=== PATIENT | female | born 1955 | race Caucasian/White ===

== ENCOUNTER 2016-03-23 16:22 | Inpatient (IN) | payer OTHER ==
[~2016-03-23 16:22] MED LIST: ETOMIDATE 20 MG/10 ML VIAL IV ONE; ROCURONIUM 50 MG/5 ML VIAL IV ONE
[2016-03-23 16:48] VITALS: BMI 23.6
--- NOTE | 2016-03-23 16:54 | EDPRACDOC ---
- General Information Information Source: Patient - History of Present Illness Onset: TODAY HPI: PT STATES THAT SHE HAS BEEN HAVING COUGH, CONGESTION, GENERALIZED WEAKNESS, FATIGUE FOR THE LAST 2 WEEKS, WENT TO PCP YESTERDAY, DX WITH PNEUMONIA, PT STATES SHE WAS GIVEN ANTIBIOTIC AND INHALER, STATES GIVEN LOPRESSOR BECAUSE HER HEART RATE WAS "HIGH", PT STATES TOOK LOPRESSOR 50 MG ONCE TODAY FOR FIRST TIME , STATES FEELS DIZZY WHEN SHE SITS UP OR STANDS UP, CONTINUES TO COUGH, DENIES FEVER. Shortness of Breath: Moderate Relevant History: Reports: None Cough: Reports: Non-productive Rhinorrhea: Reports: Clear Ear Symptoms: Reports: None SOB Worsens with: Reports: Exertion, Position SOB Improves with: Reports: Nothing Recently treated infections:: Denies: Otitis media, Pneumonia, URI Associated Signs and symptoms: Reports: Cough, Nasal Symptoms, Myalgia. Denies : Earache, Fever, Headache, Sore Throat, Nausea, Vomiting, Diarrhea, Rash, Pain with head movement, AMS <Jj Izquierdo - Last Filed: 03/23/16 17:30> <Chad Torrez - Last Filed: 03/23/16 23:30> - General Information Chief Complaint: Flu-Like Symptoms Stated Complaint: LOW BLOOD PRESSURE Time Seen by Provider: 03/23/16 16:41 Home Medications: Home Medications Aspirin (Enteric Coated) [Ecotrin] 81 mg PO DAILY 03/23/16 Duloxetine [Cymbalta] 90 mg PO DAILY 03/23/16 Ipratropium [Atrovent Hfa] 1 puff INH BID 03/23/16 Levofloxacin [Levaquin] 500 mg PO DAILY 03/23/16 Metoprolol Tartrate [Lopressor] 50 mg PO DAILY 03/23/16 Pregabalin [Lyrica] 50 mg PO TID 03/23/16 Allergies/Adverse Reactions: Allergies Allergy/AdvReac Type Severity Reaction Status Date / Time No Known Allergies Allergy Verified 08/06/14 12:14 - Treatment Prior to ED Arrival Reported Medications/Treatment PRODUCT GRADER Treated With Medication PRODUCT GRADER YES Medications PRODUCT GRADER (Medication/ Zofran 4mg per EMS Dose/Time) EMS Treatment ALS IV Yes Comment 20g to RFA <Jj Izquierdo - Last Filed: 03/23/16 17:30> - Treatment Prior to ED Arrival Reported Medications/Treatment PRODUCT GRADER Treated With Medication PRODUCT GRADER YES Medications PRODUCT GRADER (Medication/ Zofran 4mg per EMS Dose/Time) EMS Treatment ALS IV Yes Comment 20g to RFA <Chad Torrez - Last Filed: 03/23/16 23:30> ED Past Medical History - History Reviewed Yes Nurses notes reviewed and agree except as marked - Patient Medical History Neurological History: Reports: Multiple Sclerosis Cardiac History: Reports: Hypertension, Heart Attack Musculoskeletal History: Reports: Arthritis (back) Psychological History: Reports: Depression Systemic History: Reports: Cancer (cervical) Surgical History: Reports: Hysterectomy - Family Medical History Reports: Hypertension, Stroke, Cardiac Disorders. Denies: Diabetes, Cancer - Social Medical History Smoking Status: Former smoker ETOH: None Substance Abuse: None <Jj Izquierdo - Last Filed: 03/23/16 17:30> EDM Review of Systems - Review of Systems Constitutional: Fatigue, Weakness. negative: Chills, Fever Eyes: negative: Blurred Vision, Double Vision Ears: negative: Drainage, Pain Throat: negative: Pain Nose: Congestion. negative: Discharge Respiratory: Cough, Shortness of Breath, Wheezing Cardiovascular: negative: Chest Pain, Palpitations Gastrointestinal: negative: Diarrhea, Nausea, Pain, Vomiting Genitourinary: negative: Dysuria, Frequency Neurological: Dizziness, Weakness. negative: Headache, Numbness Musculoskeletal: No Symptoms Reported Integumentary: No Symptoms Reported <Kevin Izquierdoson - Last Filed: 03/23/16 17:30> - Physical Exam Constitutional: Alert (Awake), No apparent distress Oriented to: Time, Person, Place Last recorded Vital Signs: Last Vital Signs Temp 97.9 F 03/23/16 16:40 Pulse 81 03/23/16 16:46 Resp 16 03/23/16 16:46 BP 80/51 L 03/23/16 16:46 Pulse Ox 97 03/23/16 16:46 Oxygen Pulse Oxygen Saturation 97 O2 Device Room Air Oxygen Flow Rate Fraction of Inspired Oxygen ( FIO2) - HEENT Head: Normal ( normocephalic) Eye Exam: Normal (PERRL, EOMI, Sclera white) Oropharynx: Normal (Pharynx:Moist without exudate,Gums-no swelling) Tympanic Membrane: Normal ENT EAC: Normal TMJ: Normal Nose: No Symptoms Reported (septum midline) Neck: Normal (FROM, trachea at midline) - Respiratory/Cardiovascular Respiratory: Wheezes. negative: Accessory Muscle Use, Retractions Cardiovascular: Normal (RRR without murmur, gallop or rub) - GI Auscultation: Normal (NABS) Palpation: Normal (Soft,No rebound or guarding, non distended) Tenderness: Non tender Carrizales's Sign: Negative - Musculoskeletal Back: Normal (Non-Tender) Extremities: Normal (Normal tone, Pulses 2+ No cyanosis or edema, FROM) - Integumentary Skin: Normal, Warm, Dry Lymphatics: Normal (no adenopathy) - Neurologic Memory Impaired: Normal Motor Function: Normal (Normal tone, Pulses 2+ No cyanosis or edema, FROM) Cranial Nerve: Normal (CN II-X11 intact sensation, strength 5/5) Cerebellar: Normal Mood Description: Normal Perception: Normal <Jj Izquierdo - Last Filed: 03/23/16 17:30> - Physical Exam Last recorded Vital Signs: Last Vital Signs Temp 97.9 F 03/23/16 16:40 Pulse 78 03/23/16 18:36 Resp 32 H 03/23/16 18:36 BP 68/42 L 03/23/16 18:36 Pulse Ox 99 03/23/16 18:36 Oxygen Pulse Oxygen Saturation 99 O2 Device Room Air Oxygen Flow Rate 2 Fraction of Inspired Oxygen ( FIO2) <Chad Torrez - Last Filed: 03/23/16 23:30> ED Procedures - Central Line Informed of risks, benefits and alternatives described.: Yes Central Line Informed Consent Signed: Written Indication: Hypotension, Volume Resuscitation, Medication Administration Line Procedure: Chlorahexadine, Sterile drapes applied, Sterile dressing applied Equipment used during procedure: Hat and Mask, Sterile Gown, Sterile Gloves Line Lumen: triple (ULTRASOUND GUIDED) Central Line Postion: internal jugular (L) Anesthesia: Lidocaine Line Position approached and secured by standard fashion: sutured, good blood return, position confirmed w/ CXR Complications: none Post Central Line placement CXR: Ordered Post Line Placement Radiograph Findings: Proper placement - Intubation Informed of risks, benefits and alternatives described.: No Informed Consent Signed: Unable Indication: Respiratory Insufficiency, Altered Mental Status, Airway Protection Intubation Date: 03/23/16 Time of Intubation: 23:29 Pre-oxygenation completed: Yes Number of Attempts: 1 Storcz Used: Yes Intubation Method: Oral Endotracheal Tube Size (cm): 7.5 Position at Lip: 23 ETCO2 Detector Positive: Yes Breath Sounds after Intubation: equal Intubation Complications: no complications Post Intubation Procedure CXR ordered?: Yes Intubation Procedure Note: etomidate 20 mg and rocuronium 100 mg iv. <Chad Torrez - Last Filed: 03/23/16 23:30> ED SOB [facility] - EKG EKG #1 EKG Time: 16:42 -: Yes EKG interpreted by me Rate: bpm: 83 [place]: LAD Rhythm: NSR Block: None Hypertrophy: None ST: Nonsp Comparison: 02/13/12 (NO CHANGE) - Diagnostic Imaging CXR Image interpreted by: Radiologist Diagnostic Imaging Comments: PORTABLE CHEST 1 VIEW COMPARISON: 02/13/2012 FINDINGS: Borderline cardiomegaly. Mild hilar prominence bilaterally. Adenopathy cannot be excluded. No pulmonary edema. Hazy right base medially atelectasis or infiltrate. No pulmonary edema. IMPRESSION: Mild hilar prominence bilaterally. Adenopathy cannot be excluded. Hazy right base medially atelectasis or early infiltrate. No pulmonary edema. <Jj Izquierdo - Last Filed: 03/23/16 17:30> - Re-evaluation Re-evaluation 1 Re-evaluation Time: 19:08 Re-evaluation: PT OBTUNDED AFTER CENTRAL LINE. BLOOD SUGAR 44. GIVING DEXTROSE. Re-evaluation 2 Re-evaluation Time: 20:55 Re-evaluation: POOR PERIPHERAL CIRCULATION. BP 100 SYSTOLIC. BREATHING WITHOUT ASSISTANCE AT THIS TIME ON NC. Re-evaluation 3 Re-evaluation Time: 22:17 Re-evaluation: BREATHING THROUGH PURSED LIPS. UNRESPONSIVE. - Results Result Diagrams: 03/23/16 17:30 03/23/16 19:20 Results: WBC 13.1 xk/uL (3.8-10.8) H 03/23/16 17:30 RBC 4.09 xM/uL (4.20-5.40) L 03/23/16 17:30 Hgb 12.6 g/dL (12.0-16.0) 03/23/16 17:30 Hct 39.8 % (36-47) 03/23/16 17:30 MCV 97 fL (81-99) 03/23/16 17:30 MCH 30.9 pg (27-32) 03/23/16 17:30 MCHC 31.8 g/dl (33-36) L 03/23/16 17:30 RDW 15.7 % (11.5-14.5) H 03/23/16 17:30 Plt Count 248 xk/uL (130-400) 03/23/16 17:30 MPV 9.6 fL (7.4-10.4) 03/23/16 17:30 Neut % (Auto) 67.3 % (45-76) 03/23/16 17:30 Lymph % (Auto) 18.7 % (17-44) 03/23/16 17:30 [place] % (Auto) 12.5 % (3-10) H 03/23/16 17:30 Eos % (Auto) 0.2 % (0-5) 03/23/16 17:30 Baso % (Auto) 1.3 % (0-2) 03/23/16 17:30 Absolute Neuts (auto) 8.78 xk/uL (1.7-8.2) H 03/23/16 17:30 Absolute Lymphs (auto) 2.36 xk/uL (0.65-4.75) 03/23/16 17:30 PT 16.7 SEC (9.2-11.2) H 03/23/16 17:30 INR 1.6 03/23/16 17:30 APTT 25.9 SEC (22-35) 03/23/16 17:30 Puncture Site Left radial 03/23/16 17:45 pH 7.330 pH UNITS (7.35-7.45) L 03/23/16 17:45 pCO2 < 19.0 mmHg (35-45) L* 03/23/16 17:45 pO2 98.0 mmHg (80-100) 03/23/16 17:45 FiO2 % 21% 03/23/16 17:45 Specimen Drawn By Si 03/23/16 17:45 Sodium 137 mEq/L (137-146) 03/23/16 17:30 Potassium 6.3 mEq/L (3.5-5.1) H 03/23/16 17:30 Chloride 105 mEq/L (98-107) 03/23/16 17:30 Carbon Dioxide 12 mMOL/L (22-33) L 03/23/16 17:30 Anion Gap 26 mEq/L (8-16) H 03/23/16 17:30 BUN 29 MG/DL (7-17) H 03/23/16 17:30 Creatinine 1.60 MG/DL (0.52-1.04) H 03/23/16 17:30 Estimated GFR (MDRD) 33 mL/min (>=60) L 03/23/16 17:30 Glucose 81 MG/DL (70-99) 03/23/16 17:30 Calculated Osmolality 269 MOs/Kg (270-290) L 03/23/16 17:30 Lactic Acid 6.0 mEq/L (0.7-2.1) H* 03/23/16 17:10 Calcium 8.3 MG/DL (8.4-10.2) L 03/23/16 17:30 Corrected Calcium 8.6 MG/DL (8.4-10.2) 03/23/16 17:30 Total Bilirubin 2.3 MG/DL (0.2-1.3) H 03/23/16 17:30 AST 1147 IU/L (14-36) H 03/23/16 17:30 ALT 715 IU/L (9-52) H 03/23/16 17:30 Alkaline Phosphatase 103 IU/L (55-165) 03/23/16 17:30 Troponin I 0.08 ng/mL (<.04) 03/23/16 17:30 Total Protein 6.5 G/DL (6.3-8.2) 03/23/16 17:30 Albumin 3.7 G/DL (3.5-5.0) 03/23/16 17:30 Lipase 191 U/L (23-300) 03/23/16 17:30 Lab Results 03/23/16 03/23/16 03/23/16 17:45 17:30 17:30 WBC 13.1 H RBC 4.09 L Hgb 12.6 Hct 39.8 MCV 97 MCH 30.9 MCHC 31.8 L RDW 15.7 H Plt Count 248 MPV 9.6 Neut % (Auto) 67.3 Lymph % (Auto) 18.7 [place] % (Auto) 12.5 H Eos % (Auto) 0.2 Baso % (Auto) 1.3 Absolute Neuts (auto) 8.78 H Absolute Lymphs (auto) 2.36 PT 16.7 H INR 1.6 APTT 25.9 Puncture Site Left radial pH 7.330 L pCO2 < 19.0 L* pO2 98.0 FiO2 % 21% Specimen Drawn By Si Sodium Potassium Chloride Carbon Dioxide Anion Gap BUN Creatinine Estimated GFR (MDRD) Glucose Calculated Osmolality Lactic Acid Calcium Corrected Calcium Total Bilirubin AST ALT Alkaline Phosphatase Troponin I Total Protein Albumin Lipase 03/23/16 03/23/16 17:30 17:10 WBC RBC Hgb Hct MCV MCH MCHC RDW Plt Count MPV Neut % (Auto) Lymph % (Auto) [place] % (Auto) Eos % (Auto) Baso % (Auto) Absolute Neuts (auto) Absolute Lymphs (auto) PT INR APTT Puncture Site pH pCO2 pO2 FiO2 % Specimen Drawn By Sodium 137 Potassium 6.3 H Chloride 105 Carbon Dioxide 12 L Anion Gap 26 H BUN 29 H Creatinine 1.60 H Estimated GFR (MDRD) 33 L Glucose 81 Calculated Osmolality 269 L Lactic Acid 6.0 H* Calcium 8.3 L Corrected Calcium 8.6 Total Bilirubin 2.3 H AST 1147 H ALT 715 H Alkaline Phosphatase 103 Troponin I 0.08 Total Protein 6.5 Albumin 3.7 Lipase 191 - EKG EKG #2 EKG Time: 21:00 -: Yes EKG interpreted by me Rate: bpm: 86 [place]: Normal Rhythm: NSR Hypertrophy: LAE, RVH Comments: ABNORMAL EKG <Chad Torrez - Last Filed: 03/23/16 23:30> ED Critical Care Note - Critical Care Note Total Time (mins): 75 Comments: Due to the presence of and / or the risk of deterioration, my attendance to this patient required critical care time, including assessment/reassessment, documentation, ordering and interpreting ancillary studies, discussion with ED staff and consultants,patient and family, and excludes time spent on separately billable procedures. <Chad Torrez - Last Filed: 03/23/16 23:30> <Jj Izquierdo - Last Filed: 03/23/16 17:30> - Departure Yes I personally saw and evaluated the patient. Disposition: Admit IP To This Hospital Decision to Admit Time: 19:31 Decision to admit date: 03/23/16 Decision to admit: from ED - Physician Consulted Hospitalist Time Called: 19:31 Provider Called: Jareth Falcon Time [employer] Returned Call: 19:31 Cardiology Time Called: 21:20 Provider Called: Octaviano Singh Time [employer] Returned Call: 21:20 Time [employer] in ED: 21:20 Consult Reason: CASE DISCUSSED. FEELS LIKELY SEPSIS SYNDROME. SOME CADIAC DEPRESSION. RECOMMENDS ADD DOBUTAMINE. Surgery Time Called: 21:36 Provider Called: Mark Moore Time [employer] Returned Call: 21:36 Consult Reason: ULTRASOUND FINDINGS DISCUSSED. REC. PERC DRAIN. <Chad Trorez - Last Filed: 03/23/16 23:30> - Departure Condition: Critical Final Diagnosis: Lactic acidosis, CENTRAL LINE BY LUIS EDUARDO, Multisystem organ failure, Shock liver , Acute acalculous cholecystitis, Septic shock, Renal infarction, Pyelonephritis , intubation by luis eduardo Instructions: Urinary Tract Infection in Women (ED), Dysuria Referrals: Alexander Begum MD [Primary Care Provider] - One Week
[2016-03-23] MEDS ORDERED: NS 1,000 ML IV ONE ×5 (16:55→23:17)
[2016-03-23] MEDS ORDERED: Albuterol/Ipratropium Neb 3 ML NEB NEB ONE (16:55)
--- NOTE | 2016-03-23 17:13 | DIRPT ---
CLINICAL DATA: Cough, congestion, generalized weakness for 2 weeks EXAM: PORTABLE CHEST 1 VIEW COMPARISON: 02/13/2012 FINDINGS: Borderline cardiomegaly. Mild hilar prominence bilaterally. Adenopathy cannot be excluded. No pulmonary edema. Hazy right base medially atelectasis or infiltrate. No pulmonary edema. IMPRESSION: Mild hilar prominence bilaterally. Adenopathy cannot be excluded. Hazy right base medially atelectasis or early infiltrate. No pulmonary edema. Electronically Signed By: Ankur Richardson M.D. On: 03/23/2016 17:11
[2016-03-23 17:48] LABS: AUTOMATED BASOPHIL 1.3 % (0-2); AUTOMATED EOSINOPHIL 0.2 % (0-5); AUTOMATED LYMPH 18.7 % (17-44); AUTOMATED MONOCYTE 12.5 % (3-10); AUTOMATED NEUTROPHIL 67.3 % (45-76); MPV 9.6 fL (7.4-10.4)
[2016-03-23 17:51] LABS: ABG Draw Site Left Radial; ABG Draw Tech SI; ALLEN'S TEST PASS; PCO2 < 19.0 mmHg (35-45)
[2016-03-23] MEDS ORDERED: LORAZEPAM 2 MG/ML VIAL IV ONE ×3 (17:59→18:30)
[2016-03-23] MEDS ORDERED: Pharmacy Review for Metformin - IV Contrast Given SCH ×2 (18:00→20:00)
[2016-03-23 18:06] LABS: PARTIAL THROMB. TIME 25.9 SEC (22-35); PT-INR 1.6
[2016-03-23 18:13] LABS: CALC CORRECTED 8.6 MG/DL (8.4-10.2); CALCIUM 8.3 MG/DL (8.4-10.2); CREATININE 1.6 MG/DL (0.52-1.04); TOTAL PROTEIN 6.5 G/DL (6.3-8.2)
[2016-03-23] MEDS ORDERED: HYDROCORTISONE 100 MG/2 ML VIAL IV ONE (18:17)
[2016-03-23] MEDS ORDERED: Norepinephrine in D5W infusion 8,000 MCG/250 ML BAG IV SCH (19:01)
[2016-03-23] MEDS ORDERED: SODIUM BICARBONATE 50 MEQ/50 ML (8.4%) PFS IV ONE ×2 (19:02→19:03)
[2016-03-23] MEDS ORDERED: DEXTROSE 25 GM/50 ML PFS IV ONE ×4 (19:07→19:47)
[2016-03-23] MEDS ORDERED: D5W 0 ML IV ONE (19:08)
[2016-03-23] MEDS: SODIUM BICARBONATE 150 MEQ in D5W 1,000 ML IV SCH (19:34)
[2016-03-23 19:37] VITALS: TEMP 97.4
[2016-03-23] MEDS ORDERED: PIPERACILLIN AND TAZOBACTAM 4.5 GM in D5W 100 ML IV ONE (19:43)
--- NOTE | 2016-03-23 19:47 | DIRPT ---
CLINICAL DATA: Left IJ central line placement EXAM: PORTABLE CHEST 1 VIEW COMPARISON: Chest radiograph from earlier today. FINDINGS: Left internal jugular central venous catheter terminates in the right upper mediastinum, probably within the left brachiocephalic vein near the junction with the SVC. Stable cardiomediastinal silhouette with mild cardiomegaly. Suggestion of mild bilateral hilar prominence, unchanged. No pneumothorax. Probable stable bilateral small pleural effusions. Low lung volumes. No overt pulmonary edema. Mild bibasilar lung opacities, increased on the left. IMPRESSION: 1. No pneumothorax. Left IJ central venous catheter terminates in the right upper mediastinum, probably within the left brachiocephalic vein near the junction with the SVC. 2. Stable mild cardiomegaly without overt pulmonary edema. 3. Low lung volumes with mild bibasilar opacities, increased on the left, favor atelectasis. 4. Stable suggestion of mild bilateral hilar prominence, cannot exclude hilar adenopathy. 5. Stable probable small bilateral pleural effusions. Electronically Signed By: Jj García M.D. On: 03/23/2016 19:44
[2016-03-23 19:51] LABS: ABG Draw Site Left Radial; ALLEN'S TEST PASS; BEb -15.1 (+/- 2); TCO2 10.6 MMOL/L (23-27)
[2016-03-23] MEDS ORDERED: FENTANYL 100 MCG/2 ML VIAL IV ONE (19:55)
[2016-03-23 20:03] LABS: LEUKOCYTES/URINE 2+ (NEGATIVE); NITRITE/URINE NEG (NEGATIVE); RBC/URINE 20-30 (0-5); URINE OCCULT BLOOD 2+ (NEG/TRACE); WBC/URINE 20-30 (0-5)
[2016-03-23 20:11] LABS: BLOOD UREA NITROGEN 28 MG/DL (7-17); CALC CORRECTED 8.1 MG/DL (8.4-10.2); CALCIUM 6.4 MG/DL (8.4-10.2); CALCULATED OSMOLALITY 274 MOs/Kg (270-290); CHLORIDE 106 mEq/L (98-107); GLUCOSE 214 MG/DL (70-99); SODIUM LEVEL 136 mEq/L (137-146); TOTAL PROTEIN 4.3 G/DL (6.3-8.2)
--- NOTE | 2016-03-23 20:38 | DIRPT ---
CLINICAL DATA: Altered mental status. EXAM: CT HEAD WITHOUT CONTRAST TECHNIQUE: Contiguous axial images were obtained from the base of the skull through the vertex without intravenous contrast. COMPARISON: CT scan of February 13, 2012. FINDINGS: Bony calvarium appears intact. No mass effect or midline shift is noted. Ventricular size is within normal limits. There is no evidence of mass lesion, hemorrhage or acute infarction. There is noted gas in the soft tissues anterior to the right maxillary sinus of unknown etiology. IMPRESSION: No acute intracranial abnormality seen. Gas is seen in soft tissues anterior to right maxillary sinus suggesting possible traumatic injury or infection. Clinical correlation is recommended. These results were called by telephone at the time of interpretation on 03/23/2016 at 8:[address] HÉCTOR HOFF DO, who verbally acknowledged these results. Electronically Signed By: Michelet Dawson Jr, M.D. On: 03/23/2016 20:36
--- NOTE | 2016-03-23 20:54 | DIRPT ---
CLINICAL DATA: Altered mental status, hypotension, shortness of breath and elevated liver function tests. Initial encounter. EXAM: CT ANGIOGRAPHY CHEST CT ABDOMEN AND PELVIS WITH CONTRAST TECHNIQUE: Multidetector CT imaging of the chest was performed using the standard protocol during bolus administration of intravenous contrast. Multiplanar CT image reconstructions and MIPs were obtained to evaluate the vascular anatomy. Multidetector CT imaging of the abdomen and pelvis was performed using the standard protocol during bolus administration of intravenous contrast. CONTRAST: 90 cc Isovue 370. COMPARISON: None. FINDINGS: CTA CHEST FINDINGS No pulmonary embolus is identified. There is cardiomegaly. Moderate right and small left pleural effusions are seen. No pericardial effusion. Calcific coronary atherosclerosis is noted. There is abnormal soft tissue attenuation in the supraclavicular space bilaterally which appears fairly symmetric. The lungs demonstrate extensive ground-glass attenuation and interlobular septal thickening best seen in the upper lobes bilaterally. There is some compressive atelectasis. No focal bony abnormality is identified. CT ABDOMEN and PELVIS FINDINGS Multiple areas of low attenuation are seen in the kidneys bilaterally. No hydronephrosis is seen. A punctate nonobstructing stone is present in the upper pole of the right kidney. Two punctate nonobstructing stones are seen in the left kidney. The liver is diffusely low attenuating. Contrast refluxes into the inferior vena cava and hepatic veins consistent with right heart failure. The gallbladder is distended with a sludge ball present. The spleen, pancreas and adrenal glands appear normal. There is a small volume of abdominal and pelvic ascites. Moyer catheter is in place in a decompressed urinary bladder. No lymphadenopathy is seen. The patient is status post hysterectomy. Sigmoid diverticulosis without diverticulitis is identified. The stomach, small and large bowel and appendix appear normal. No focal bony abnormality is seen. Review of the MIP images confirms the above findings. IMPRESSION: Negative for pulmonary embolus. Findings consistent with congestive heart failure with marked cardiomegaly, pleural effusions and changes of pulmonary edema identified. Reflux of contrast into the IVC and hepatic veins is consistent with right heart insufficiency. Markedly abnormal appearance of the kidneys as described above could be due to infiltrative process such as lymphoma, severe pyelonephritis or possibly bilateral renal infarcts. Diffuse fatty infiltration of the liver. Distended gallbladder with a large sludge ball present. If there is concern for cholecystitis, right upper quadrant ultrasound could be used for further evaluation. Calcific coronary atherosclerosis. Small volume of abdominal and pelvic ascites. Nodular appearance and infiltration of supraclavicular fat bilaterally is nonspecific. This may be due to edema or less likely lymphadenopathy. Recommend correlation with clinical examination. Diverticulosis without diverticulitis. These results were called by telephone at the time of interpretation on 03/23/2016 at 8:[address] HÉCTOR HOFF DO, who verbally acknowledged these results. Electronically Signed By: Frank Justice M.D. On: 03/23/2016 20:51
--- NOTE | 2016-03-23 21:37 | PCM.CARDCO ---
Consultation Date: 03/23/16 Requesting Physician: Jareth Falcon (shock) Consulting Doctor: Octaviano Singh Travel Outside of [place] in the Last 3 Months?: No Consultation Note: History of Present Illness: The pt is a 61 yo WF who is followed primarily by Dr. Begum, and for Cardiology in our group by Dr. Rosa, with hx of coronary stenting after what family understands was a very limited OR about 7 years ago. She was well until a month or two ago when she developed sx of URI incl rhinitis and cough (hx per ). She initially did better, than had recurrent worsening cough, was seen this month by Dr. Begum and dx with pneumonia, started on Levoquin. OVer the last week, she has become steadily worse, with worsening SOB, progressing to severe generalized weakness today prompting her eval in ER. She presents obtunded, hypotensive, in clinical shock. Past Medical History: CAD with prior coronary stent. NO DM or HBP. Cervical cancer. Multiple sclerosis dx about 1-2 yrs ago. Allergies No Known Allergies Allergy (Verified 08/06/14 12:14) Home Medications Aspirin (Enteric Coated) [Ecotrin] 81 mg PO DAILY 03/23/16 Duloxetine [Cymbalta] 90 mg PO DAILY 03/23/16 Ipratropium [Atrovent Hfa] 1 puff INH BID 03/23/16 Levofloxacin [Levaquin] 500 mg PO DAILY 03/23/16 Metoprolol Tartrate [Lopressor] 50 mg PO DAILY 03/23/16 Pregabalin [Lyrica] 50 mg PO TID 03/23/16 Family History: + for CAD Social History: Traveled outside the [place] in the last 3 months? No Former smoker , lives with Review of Systems: No obtainable b/o pt obtundation Physical Examination: Temperature: 97.4 F (03/23/16 19:33)HR: 86 (03/23/16 21:05)RR: 17 (03/23/16 21: 05)BP: 115/68 (03/23/16 21:05) SAT:99 (03/23/16 18:36) Had been 80/52 on presentation. Physical Exam GEN: WDWN, age apporpriate, obtunded, no response to veral stim VS: as above on Levophed HEENT: no gross JVD. Carotids 1+ bilat CHEST: clear anteriorly COR: RR, normal s1, s2, no s3. No murmur ABD: no distention EXTREM: cool, clammy, peripheral pulses all diminished SKIN: cool, clammy, ashen NEURO: obtunded, LAB/DI: [] Laboratory Tests 03/23/16 03/23/16 03/23/16 17:10 17:30 17:30 WBC 13.1 H Hgb 12.6 Hct 39.8 Plt Count 248 PT INR pH pCO2 pO2 HCO3 Sodium 137 Potassium 6.3 H Chloride Carbon Dioxide 12 L Anion Gap 26 H BUN 29 H Creatinine 1.60 H Estimated GFR (MDRD) 33 L Glucose Lactic Acid 6.0 H* Corrected Calcium Total Bilirubin AST ALT Alkaline Phosphatase Troponin I 0.08 Albumin 03/23/16 03/23/16 03/23/16 17:30 19:20 19:25 WBC Hgb Hct Plt Count PT 16.7 H INR 1.6 pH 7.260 L pCO2 22.0 L pO2 101.0 H HCO3 9.9 L Sodium 136 L Potassium 5.5 H Chloride 106 Carbon Dioxide 14 L Anion Gap BUN 28 H Creatinine 1.50 H Estimated GFR (MDRD) 35 L Glucose 214 H Lactic Acid Corrected Calcium 8.1 L Total Bilirubin 1.7 H AST 1070 H ALT 613 H Alkaline Phosphatase 66 Troponin I Albumin 2.3 L / EKG: NSR, diffuse low voltage. Poor anteroseptal R progression. Mild inferior ST depression CT/CxR: ground glass pulm infiltration abd US: thickened GB wall, no stones bedside echo (with US machine in ER): diffuse hypokinesis, EF 40s. No pericardial effusion. IMPRESSION: (1) sepsis syndrome with clinical shock, lactic acidosis. (2) myocardial depression secondary to #1, but no acute OR - Recommendations PLAN: add dobutamine to Levophed for inotropic support. formal echocardiogram in AM; pt's counseled that prognosis is guarded. Transfer to [facility] is suggested, but thwarted by bed inavailability.
--- NOTE | 2016-03-23 21:58 | PCM.SURGCO ---
Consultation Date: 03/23/16 Requesting Physician: Chad Hoff Occupational Analyst: Mark Moore Consult Reason: Sepsis - History of Present Illness This is a 61 year old female that is somnolent. All history obtained from the patient's and patient's mother. The patient had been 'fighting a cold' and went to her primary care physician's office on 03/21/16. She was diagnosed with pneumonia. She was given an antibiotic and something to slow her heart down. She developed nausea, vomiting and diarrhea yesterday evening. She was unable to sleep last night and by noon today, was very weak and could not get up and move around. Chief Complaint: weakness - Past Medical and Surgical History Cardiac History: Reports: Hypertension, Heart Attack Respiratory History: Reports: Pneumonia (diagnosed with pneumonia at her primary care physician's office.) Systemic History: Reports: Cancer (cervical.) Musculoskeletal History: Reports: Arthritis (back) Psychological History: Reports: Depression Neurological History: Reports: Multiple Sclerosis Past Surgical History: Reports: Hysterectomy Allergies No Known Allergies Allergy (Verified 08/06/14 12:14) Home Medications Aspirin (Enteric Coated) [Ecotrin] 81 mg PO DAILY 03/23/16 Duloxetine [Cymbalta] 90 mg PO DAILY 03/23/16 Ipratropium [Atrovent Hfa] 1 puff INH BID 03/23/16 Levofloxacin [Levaquin] 500 mg PO DAILY 03/23/16 Metoprolol Tartrate [Lopressor] 50 mg PO DAILY 03/23/16 Pregabalin [Lyrica] 50 mg PO TID 03/23/16 - Social History Travel Outside of [place] in the Last 3 Months?: No Lives: With Family Smoking Status: Former smoker Social History: Denies: Amphetamine Use, Alcohol Use, Barbiturate Use, Benzodiazipine Use, Cocaine Use, Heroin Use, Marijuana Use, Methadone Use, MDMA (Ecstasy) Use, Substance Use Disorder - Family History Reports: Hypertension, Stroke, Cardiac Disorders. Denies: Diabetes, Cancer - Review of Systems Yes All systems reviewed and were negative except as marked (twelve systems reviewed with the patient's .) - Physical Exam Vital Signs: Initial Vitals Pulse Rate 82 03/23/16 16:37 Respiratory Rate 19 03/23/16 16:37 Constitutional: Decreased Consciousness, Somnolent. negative: Distress Oriented to: Unable to Test - HEENT Head: Normal Eye: Pale Conjunctiva Respiratory: Diminished (bilateral bases.) Cardiovascular: Other (markedly diminished.) - GI Auscultation: Decreased Tenderness: negative: Non tender (Unable to determine as patient somnolent.) Rectal Exam: Deferred - Musculoskeletal Extremities: negative: Edema - Integumentary Skin: Diaphoretic, Pale - Neurologic Memory Impaired: Unable to Test Motor Function: Unable to Test Cranial Nerve: Unable to Test Cerebellar: Unable to Test - Lab Results 03/23/16 17:30 03/23/16 19:20 - Diagnostic Findings Final Report CLINICAL DATA: Altered mental status, hypotension, shortness of breath and elevated liver function tests. Initial encounter. EXAM: CT ANGIOGRAPHY CHEST CT ABDOMEN AND PELVIS WITH CONTRAST TECHNIQUE: Multidetector CT imaging of the chest was performed using the standard protocol during bolus administration of intravenous contrast. Multiplanar CT image reconstructions and MIPs were obtained to evaluate the vascular anatomy. Multidetector CT imaging of the abdomen and pelvis was performed using the standard protocol during bolus administration of intravenous contrast. CONTRAST: 90 cc Isovue 370. COMPARISON: None. FINDINGS: CTA CHEST FINDINGS No pulmonary embolus is identified. There is cardiomegaly. Moderate right and small left pleural effusions are seen. No pericardial effusion. Calcific coronary atherosclerosis is noted. There is abnormal soft tissue attenuation in the supraclavicular space bilaterally which appears fairly symmetric. The lungs demonstrate extensive ground-glass attenuation and interlobular septal thickening best seen in the upper lobes bilaterally. There is some compressive atelectasis. No focal bony abnormality is identified. CT ABDOMEN and PELVIS FINDINGS Multiple areas of low attenuation are seen in the kidneys bilaterally. No hydronephrosis is seen. A punctate nonobstructing stone is present in the upper pole of the right kidney. Two punctate nonobstructing stones are seen in the left kidney. The liver is diffusely low attenuating. Contrast refluxes into the inferior vena cava and hepatic veins consistent with right heart failure. The gallbladder is distended with a sludge ball present. The spleen, pancreas and adrenal glands appear normal. There is a small volume of abdominal and pelvic ascites. Moyer catheter is in place in a decompressed urinary bladder. No lymphadenopathy is seen. The patient is status post hysterectomy. Sigmoid diverticulosis without diverticulitis is identified. The stomach, small and large bowel and appendix appear normal. No focal bony abnormality is seen. Review of the MIP images confirms the above findings. IMPRESSION: Negative for pulmonary embolus. Findings consistent with congestive heart failure with marked cardiomegaly, pleural effusions and changes of pulmonary edema identified. Reflux of contrast into the IVC and hepatic veins is consistent with right heart insufficiency. Markedly abnormal appearance of the kidneys as described above could be due to infiltrative process such as lymphoma, severe pyelonephritis or possibly bilateral renal infarcts. Diffuse fatty infiltration of the liver. Distended gallbladder with a large sludge ball present. If there is concern for cholecystitis, right upper quadrant ultrasound could be used for further evaluation. Calcific coronary atherosclerosis. Small volume of abdominal and pelvic ascites. Nodular appearance and infiltration of supraclavicular fat bilaterally is nonspecific. This may be due to edema or less likely lymphadenopathy. Recommend correlation with clinical examination. Diverticulosis without diverticulitis. These results were called by telephone at the time of interpretation on 03/23/2016 at 8:[address] CHAD HOFF DO, who verbally acknowledged these results. Electronically Signed By: Frank Justice M.D. On: 03/23/2016 20:51 - Assessment/Plan (1) Acute acalculous cholecystitis K81.0 - ACUTE CHOLECYSTITIS Acute Present on Admission: Yes Comment: The patient has a very thick walled gallbladder with no stones identified. The patient is critically ill and not a surgical candidate. We will plan for the interventional radiology department to evaluate for possible cholecystostomy tube placement. I discussed this treatment plan with the patient's , mother and son. All questions were answered. Case Care Discussed with: Patient, Consultants (Dr. Falcon), Family (Patient's , patient's mother and patient's son. )
[2016-03-23] MEDS ORDERED: DOBUTamine 500,000 MCG/250 ML RTU IV SCH (22:00)
--- NOTE | 2016-03-23 22:11 | DIRPT ---
CLINICAL DATA: Sepsis, elevated liver function tests. EXAM: US ABDOMEN LIMITED - RIGHT UPPER QUADRANT COMPARISON: CT scan of same day. FINDINGS: Gallbladder: Severe wall thickening is noted without gallstones. Sonographic Carrizales's sign could not be assessed due to patient being unresponsive. Mild pericholecystic fluid is noted. Common bile duct: Diameter: 1.1 mm which is within normal limits. Liver: No focal lesion identified. Increased echogenicity is noted of hepatic parenchyma suggesting fatty infiltration or diffuse hepatocellular disease. IMPRESSION: Probable fatty infiltration of the liver or other diffuse hepatocellular disease. No gallstones are noted, but severe gallbladder wall thickening is noted with mild amount of surrounding pericholecystic fluid, which is concerning for cholecystitis. Electronically Signed By: Michelet Dawson Jr, M.D. On: 03/23/2016 22:08
--- NOTE | 2016-03-23 22:47 | HISTPHYS ---
- Chief Complaint sepsis, hypotension - History of Present Illness PRIMARY CARE PROVIDER: Dr. Alexander Begum, [facility], [place], [place] UNIFORM ROOM ATTENDANT: Dr. Rosa, [facility], [place], [place] HPI: The patient is a 61 yo woman with multiple sclerosis who presents with acute illness and severe distress. She is currently not speaking so her provides the history. She had an upper respiratory infection about 3 weeks ago and it resolved, then over the last week she has been getting sick again. She went to the doctor's office, was diagnosed with pneumonia, and started on Levaquin. She became short of breath. She started vomiting yesterday. Today she was so weak she could not get up. She then became obtunded today. Onset: Upper respiratory infection several weeks ago. New infection over the last week. Duration: progressively worsening Character: Severe fatigue, obtunded. Alleviated by: Nothing. Exacerbated by: Nothing. Associated Symptoms: She did complain of some abdominal pain at one point at home. Vomiting. Shortness of breath. Cough. Chills. No diaphoresis. No chest pain or palpitations. Treatments: none at home except usual medications. Was started on Levaquin . - Medical History Cardiac History: Reports: Coronary Artery Disease, Hypertension, Heart Attack ( Apr 2009, inferior wall STEMI, transferred to [place]. Stent placed.), Cardiac Catheterization (Apr 2009 for inferior wall STEMI. Stent placed.) Respiratory History: Reports: Pneumonia (diagnosed with pneumonia at her primary care physician's office.) Musculoskeletal History: Reports: Arthritis (back) Systemic History: Reports: Cancer (cervical.) Neurological History: Reports: Multiple Sclerosis Psychological History: Reports: Depression - Surgical History Reports: Hysterectomy, Cardiac Catheterization (Apr 2009 for inferior wall STEMI. Stent placed.) - Medictions/Allergies Allergies No Known Allergies Allergy (Verified 08/06/14 12:14) Current Medication List: Reviewed Home Medications Aspirin (Enteric Coated) [Ecotrin] 81 mg PO DAILY 03/23/16 Duloxetine [Cymbalta] 90 mg PO DAILY 03/23/16 Ipratropium [Atrovent Hfa] 1 puff INH BID 03/23/16 Levofloxacin [Levaquin] 500 mg PO DAILY 03/23/16 Metoprolol Tartrate [Lopressor] 50 mg PO DAILY 03/23/16 Pregabalin [Lyrica] 50 mg PO TID 03/23/16 - Family History Reports: Hypertension, Stroke, Cardiac Disorders - Social History Travel Outside of [place] in the Last 3 Months?: No Lives: With Family Smoking Status: Former smoker Social History: Denies: Alcohol Use, Substance Use Disorder - Review of Systems Yes Review of systems cannot be obtained due to the patient's medical condition - Physical Exam Vital Signs: Initial Vitals Pulse Rate 82 03/23/16 16:37 Respiratory Rate 19 03/23/16 16:37 Vital Signs - 24 hr 03/23/16 03/23/16 03/23/16 16:37 16:40 16:46 Temperature 97.9 F Pulse Rate 82 81 Respiratory 19 16 Rate Blood Pressure 80/51 L Pulse Oxygen 99 97 Saturation 03/23/16 03/23/16 03/23/16 16:50 16:54 17:14 Temperature Pulse Rate 85 80 Respiratory 16 20 Rate Blood Pressure 85/53 L 80/52 L 78/38 L Pulse Oxygen 97 Saturation 03/23/16 03/23/16 03/23/16 17:41 17:56 18:11 Temperature Pulse Rate 83 81 78 Respiratory 22 26 H 20 Rate Blood Pressure 92/40 L 69/40 L Pulse Oxygen 96 96 Saturation 03/23/16 03/23/16 03/23/16 18:36 19:04 19:15 Temperature Pulse Rate 78 84 78 Respiratory 32 H 30 H 24 Rate Blood Pressure 68/42 L Pulse Oxygen 99 Saturation 03/23/16 03/23/16 03/23/16 19:33 20:22 20:32 Temperature 97.4 F L Pulse Rate 82 83 84 Respiratory 24 10 12 Rate Blood Pressure 145/100 93/55 L 84/49 L Pulse Oxygen Saturation 03/23/16 03/23/16 03/23/16 20:41 20:52 21:00 Temperature Pulse Rate 86 86 86 Respiratory 15 18 15 Rate Blood Pressure 100/62 100/71 95/58 L Pulse Oxygen Saturation 03/23/16 03/23/16 03/23/16 21:05 21:10 21:15 Temperature Pulse Rate 86 86 86 Respiratory 17 18 18 Rate Blood Pressure 115/68 95/53 L 94/52 L Pulse Oxygen Saturation 03/23/16 03/23/16 03/23/16 21:20 21:25 21:35 Temperature Pulse Rate 86 86 86 Respiratory 20 20 Rate Blood Pressure 106/53 L 116/53 L Pulse Oxygen 94 93 Saturation 03/23/16 03/23/16 03/23/16 21:45 22:15 22:25 Temperature Pulse Rate 86 86 88 Respiratory 20 18 18 Rate Blood Pressure 115/56 L 103/53 L 99/57 L Pulse Oxygen 96 Saturation 03/23/16 23:27 Temperature Pulse Rate 90 Respiratory 16 Rate Blood Pressure 85/60 L Pulse Oxygen 100 Saturation Weight: 64.4 kg Height: 5'5" (estimated) BMI:23.6 - Other Exam Other Exam Findings: GENERAL: Severely ill-appearing, well nourished, in severe acute distress. HEENT: Normocephalic, atraumatic; pupils equal and round; large pupils minimally reactive to light. Nares patent, without discharge or bleeding. No oropharyngeal lesions or erythema. Frothy brandon sputum at corner of mouth. Mucous membranes are dry. NECK: is supple, no masses, trachea midline. RESPIRATORY: Clear to auscultation bilaterally. Chest wall movements are symmetric. No use of accessory muscles to breathe. Tachypnea. Decreased breath sounds in bases. No wheezing, rales, rhonchi. CARDIOVASCULAR: Normal S1, S2. Severely distant heart sounds, barely audible. No rubs, or gallops. PMI non-displaced. Carotids: no carotid bruits. Mild tachycardia. DP, PT pulses not palpable bilaterally. Radial pulses barely palpable and severely diminished. Carotid pulses diminished. GI: soft, non-distended, normal active bowel sounds. No hepatosplenomegaly. Tenderness in the right upper quadrant. INTEGUMENT: Clean, dry, and intact. No rashes. Patient has cyanotic/brandon hue. MUSCULOSKELETAL: Observed patient moving all extremities. Cyanosis. No clubbing. Edema: none bilaterally. NEUROLOGICAL: Cranial nerves 2-12 grossly intact, as best can be determined in this obtunded patient. Reflexes: 2+ bilaterally. Babinski: toes downgoing bilaterally. Further neurologic exam could not be performed due to the medical condition of the patient. She moves all extremities and attempts to sit up on the stretcher or roll to her left side. Not following commands. PSYCHIATRIC: Not oriented. Somnolent to obtunded. Not speaking but is grunting intermittently. LYMPHATIC: No cervical lymphadenopathy. No supraclavicular lymphadenopathy. - Lab Results Laboratory Results - last 24 hr 03/23/16 03/23/16 03/23/16 17:10 17:30 17:30 WBC 13.1 H RBC 4.09 L Hgb 12.6 Hct 39.8 MCV 97 MCH 30.9 MCHC 31.8 L RDW 15.7 H Plt Count 248 MPV 9.6 Neut % (Auto) 67.3 Lymph % (Auto) 18.7 [place] % (Auto) 12.5 H Eos % (Auto) 0.2 Baso % (Auto) 1.3 Absolute Neuts (auto) 8.78 H Absolute Lymphs (auto) 2.36 PT INR APTT Puncture Site pH pCO2 pO2 HCO3 Total CO2 Base Excess Vent Mode FiO2 % Tidal Volume PEEP Specimen Drawn By Sodium 137 Potassium 6.3 H Chloride 105 Carbon Dioxide 12 L Anion Gap 26 H BUN 29 H Creatinine 1.60 H Estimated GFR (MDRD) 33 L Glucose 81 POC Capillary Glucose Calculated Osmolality 269 L Lactic Acid 6.0 H* Calcium 8.3 L Corrected Calcium 8.6 Total Bilirubin 2.3 H AST 1147 H ALT 715 H Alkaline Phosphatase 103 Troponin I 0.08 [id number] Pept Total Protein 6.5 Albumin 3.7 Lipase 191 Urine Color Urine Clarity Urine pH Ur Specific [place] Urine Protein Urine Glucose (UA) Urine Ketones Urine Occult Blood Urine Nitrite Urine Bilirubin Urine Urobilinogen Ur Leukocyte Esterase Urine RBC Urine WBC Ur Epithelial Cells Urine Bacteria Urine Mucus Salicylates Acetaminophen Blood Type Antibody Screen 03/23/16 03/23/16 03/23/16 17:30 17:45 19:07 WBC RBC Hgb Hct MCV MCH MCHC RDW Plt Count MPV Neut % (Auto) Lymph % (Auto) [place] % (Auto) Eos % (Auto) Baso % (Auto) Absolute Neuts (auto) Absolute Lymphs (auto) PT 16.7 H INR 1.6 APTT 25.9 Puncture Site Left radial pH 7.330 L pCO2 < 19.0 L* pO2 98.0 HCO3 Total CO2 Base Excess Vent Mode FiO2 % 21% Tidal Volume PEEP Specimen Drawn By Si Sodium Potassium Chloride Carbon Dioxide Anion Gap BUN Creatinine Estimated GFR (MDRD) Glucose POC Capillary Glucose 44 L* Calculated Osmolality Lactic Acid Calcium Corrected Calcium Total Bilirubin AST ALT Alkaline Phosphatase Troponin I [id number] Pept Total Protein Albumin Lipase Urine Color Urine Clarity Urine pH Ur Specific [place] Urine Protein Urine Glucose (UA) Urine Ketones Urine Occult Blood Urine Nitrite Urine Bilirubin Urine Urobilinogen Ur Leukocyte Esterase Urine RBC Urine WBC Ur Epithelial Cells Urine Bacteria Urine Mucus Salicylates Acetaminophen Blood Type Antibody Screen 03/23/16 03/23/16 03/23/16 19:20 19:20 19:21 WBC RBC Hgb Hct MCV MCH MCHC RDW Plt Count MPV Neut % (Auto) Lymph % (Auto) [place] % (Auto) Eos % (Auto) Baso % (Auto) Absolute Neuts (auto) Absolute Lymphs (auto) PT INR APTT Puncture Site pH pCO2 pO2 HCO3 Total CO2 Base Excess Vent Mode FiO2 % Tidal Volume PEEP Specimen Drawn By Sodium 136 L Potassium 5.5 H Chloride 106 Carbon Dioxide 14 L Anion Gap 22 H BUN 28 H Creatinine 1.50 H Estimated GFR (MDRD) 35 L Glucose 214 H POC Capillary Glucose Calculated Osmolality 274 Lactic Acid Calcium 6.4 L* Corrected Calcium 8.1 L Total Bilirubin 1.7 H AST 1070 H ALT 613 H Alkaline Phosphatase 66 Troponin I [id number] Pept Total Protein 4.3 L Albumin 2.3 L Lipase Urine Color Bree Urine Clarity Sl cldy Urine pH 6.0 Ur Specific [place] 1.020 Urine Protein 2+ H Urine Glucose (UA) Neg Urine Ketones Neg Urine Occult Blood 2+ H Urine Nitrite Neg Urine Bilirubin Neg Urine Urobilinogen 8 H Ur Leukocyte Esterase 2+ H Urine RBC 20-30 H Urine WBC 20-30 H Ur Epithelial Cells 2+ Urine Bacteria Few Urine Mucus Mod H Salicylates < 1.0 Acetaminophen < 10.0 Blood Type Antibody Screen 03/23/16 03/23/16 03/23/16 19:25 19:46 20:24 WBC RBC Hgb Hct MCV MCH MCHC RDW Plt Count MPV Neut % (Auto) Lymph % (Auto) [place] % (Auto) Eos % (Auto) Baso % (Auto) Absolute Neuts (auto) Absolute Lymphs (auto) PT INR APTT Puncture Site Left radial pH 7.260 L pCO2 22.0 L pO2 101.0 H HCO3 9.9 L Total CO2 10.6 L Base Excess -15.1 L Vent Mode FiO2 % 3.5 lpm nc Tidal Volume PEEP Specimen Drawn By Rakma Sodium Potassium Chloride Carbon Dioxide Anion Gap BUN Creatinine Estimated GFR (MDRD) Glucose POC Capillary Glucose 48 L* 127 H Calculated Osmolality Lactic Acid Calcium Corrected Calcium Total Bilirubin AST ALT Alkaline Phosphatase Troponin I [id number] Pept Total Protein Albumin Lipase Urine Color Urine Clarity Urine pH Ur Specific [place] Urine Protein Urine Glucose (UA) Urine Ketones Urine Occult Blood Urine Nitrite Urine Bilirubin Urine Urobilinogen Ur Leukocyte Esterase Urine RBC Urine WBC Ur Epithelial Cells Urine Bacteria Urine Mucus Salicylates Acetaminophen Blood Type Antibody Screen 03/23/16 03/23/16 03/23/16 20:35 20:35 21:50 WBC RBC Hgb Hct MCV MCH MCHC RDW Plt Count MPV Neut % (Auto) Lymph % (Auto) [place] % (Auto) Eos % (Auto) Baso % (Auto) Absolute Neuts (auto) Absolute Lymphs (auto) PT INR APTT Puncture Site pH pCO2 pO2 HCO3 Total CO2 Base Excess Vent Mode FiO2 % Tidal Volume PEEP Specimen Drawn By Sodium Potassium Chloride Carbon Dioxide Anion Gap BUN Creatinine Estimated GFR (MDRD) Glucose POC Capillary Glucose Calculated Osmolality Lactic Acid 11.3 H* Calcium Corrected Calcium Total Bilirubin AST ALT Alkaline Phosphatase Troponin I 0.08 [id number] Pept 16260 H Total Protein Albumin Lipase 157 Urine Color Urine Clarity Urine pH Ur Specific [place] Urine Protein Urine Glucose (UA) Urine Ketones Urine Occult Blood Urine Nitrite Urine Bilirubin Urine Urobilinogen Ur Leukocyte Esterase Urine RBC Urine WBC Ur Epithelial Cells Urine Bacteria Urine Mucus Salicylates Acetaminophen Blood Type Antibody Screen 03/23/16 03/23/16 03/23/16 22:28 23:56 23:57 WBC RBC Hgb Hct MCV MCH MCHC RDW Plt Count MPV Neut % (Auto) Lymph % (Auto) [place] % (Auto) Eos % (Auto) Baso % (Auto) Absolute Neuts (auto) Absolute Lymphs (auto) PT INR APTT Puncture Site Left radial pH 7.110 L* pCO2 35.0 pO2 66.0 L HCO3 11.1 L Total CO2 12.2 L Base Excess -17.5 L Vent Mode A/c 16 FiO2 % 100 Tidal Volume 500 PEEP 5 Specimen Drawn By Robcha Sodium Potassium Chloride Carbon Dioxide Anion Gap BUN Creatinine Estimated GFR (MDRD) Glucose POC Capillary Glucose 229 H Calculated Osmolality Lactic Acid Calcium Corrected Calcium Total Bilirubin AST ALT Alkaline Phosphatase Troponin I [id number]-Hofudlrfmkq Pept Total Protein Albumin Lipase Urine Color Urine Clarity Urine pH Ur Specific [place] Urine Protein Urine Glucose (UA) Urine Ketones Urine Occult Blood Urine Nitrite Urine Bilirubin Urine Urobilinogen Ur Leukocyte Esterase Urine RBC Urine WBC Ur Epithelial Cells Urine Bacteria Urine Mucus Salicylates Acetaminophen Blood Type A NEGATIVE Antibody Screen Negative - Diagnostic Findings EK bpm. Normal sinus rhythm. Possible left atrial enlargement. Left axis deviation. Possible anterior infarct, age undetermined. Flat T wave in 2, 3, aVF , V6. Reviewed EKG personally. IMAGING: Chest x-ray #1, viewed personally: EXAM: PORTABLE CHEST 1 VIEW COMPARISON: 02/13/2012 FINDINGS: Borderline cardiomegaly. Mild hilar prominence bilaterally. Adenopathy cannot be excluded. No pulmonary edema. Hazy right base medially atelectasis or infiltrate. No pulmonary edema. IMPRESSION: Mild hilar prominence bilaterally. Adenopathy cannot be excluded. Hazy right base medially atelectasis or early infiltrate. No pulmonary edema. Chest x-ray #2, viewed personally: CLINICAL DATA: Left IJ central line placement EXAM: PORTABLE CHEST 1 VIEW COMPARISON: Chest radiograph from earlier today. FINDINGS: Left internal jugular central venous catheter terminates in the right upper mediastinum, probably within the left brachiocephalic vein near the junction with the SVC. Stable cardiomediastinal silhouette with mild cardiomegaly. Suggestion of mild bilateral hilar prominence, unchanged. No pneumothorax. Probable stable bilateral small pleural effusions. Low lung volumes. No overt pulmonary edema. Mild bibasilar lung opacities, increased on the left. IMPRESSION: 1. No pneumothorax. Left IJ central venous catheter terminates in the right upper mediastinum, probably within the left brachiocephalic vein near the junction with the SVC. 2. Stable mild cardiomegaly without overt pulmonary edema. 3. Low lung volumes with mild bibasilar opacities, increased on the left, favor atelectasis. 4. Stable suggestion of mild bilateral hilar prominence, cannot exclude hilar adenopathy. 5. Stable probable small bilateral pleural effusions. EXAM: CT ANGIOGRAPHY CHEST CT ABDOMEN AND PELVIS WITH CONTRAST TECHNIQUE: Multidetector CT imaging of the chest was performed using the standard protocol during bolus administration of intravenous contrast. Multiplanar CT image reconstructions and MIPs were obtained to evaluate the vascular anatomy. Multidetector CT imaging of the abdomen and pelvis was performed using the standard protocol during bolus administration of intravenous contrast. CONTRAST: 90 cc Isovue 370. COMPARISON: None. FINDINGS: CTA CHEST FINDINGS No pulmonary embolus is identified. There is cardiomegaly. Moderate right and small left pleural effusions are seen. No pericardial effusion. Calcific coronary atherosclerosis is noted. There is abnormal soft tissue attenuation in the supraclavicular space bilaterally which appears fairly symmetric. The lungs demonstrate extensive ground-glass attenuation and interlobular septal thickening best seen in the upper lobes bilaterally. There is some compressive atelectasis. No focal bony abnormality is identified. CT ABDOMEN and PELVIS FINDINGS Multiple areas of low attenuation are seen in the kidneys bilaterally. No hydronephrosis is seen. A punctate nonobstructing stone is present in the upper pole of the right kidney. Two punctate nonobstructing stones are seen in the left kidney. The liver is diffusely low attenuating. Contrast refluxes into the inferior vena cava and hepatic veins consistent with right heart failure. The gallbladder is distended with a sludge ball present. The spleen, pancreas and adrenal glands appear normal. There is a small volume of abdominal and pelvic ascites. Moyer catheter is in place in a decompressed urinary bladder. No lymphadenopathy is seen. The patient is status post hysterectomy. Sigmoid diverticulosis without diverticulitis is identified. The stomach, small and large bowel and appendix appear normal. No focal bony abnormality is seen. Review of the MIP images confirms the above findings. IMPRESSION: Negative for pulmonary embolus. Findings consistent with congestive heart failure with marked cardiomegaly, pleural effusions and changes of pulmonary edema identified. Reflux of contrast into the IVC and hepatic veins is consistent with right heart insufficiency. Markedly abnormal appearance of the kidneys as described above could be due to infiltrative process such as lymphoma, severe pyelonephritis or possibly bilateral renal infarcts. Diffuse fatty infiltration of the liver. Distended gallbladder with a large sludge ball present. If there is concern for cholecystitis, right upper quadrant ultrasound could be used for further evaluation. Calcific coronary atherosclerosis. Small volume of abdominal and pelvic ascites. Nodular appearance and infiltration of supraclavicular fat bilaterally is nonspecific. This may be due to edema or less likely lymphadenopathy. Recommend correlation with clinical examination. Diverticulosis without diverticulitis. These results were called by telephone at the time of interpretation on 03/23/2016 at 8:[address] HÉCTOR HOFF DO, who verbally acknowledged these results EXAM: CT HEAD WITHOUT CONTRAST TECHNIQUE: Contiguous axial images were obtained from the base of the skull through the vertex without intravenous contrast. COMPARISON: CT scan of February 13, 2012. FINDINGS: Bony calvarium appears intact. No mass effect or midline shift is noted. Ventricular size is within normal limits. There is no evidence of mass lesion, hemorrhage or acute infarction. There is noted gas in the soft tissues anterior to the right maxillary sinus of unknown etiology. IMPRESSION: No acute intracranial abnormality seen. Gas is seen in soft tissues anterior to right maxillary sinus suggesting possible traumatic injury or infection. Clinical correlation is recommended. These results were called by telephone at the time of interpretation on 03/23/2016 at 8:[address] HÉCTOR HOFF DO, who verbally acknowledged these results. EXAM: US ABDOMEN LIMITED - RIGHT UPPER QUADRANT COMPARISON: CT scan of same day. FINDINGS: Gallbladder: Severe wall thickening is noted without gallstones. Sonographic Carrizales's sign could not be assessed due to patient being unresponsive. Mild pericholecystic fluid is noted. Common bile duct: Diameter: 1.1 mm which is within normal limits. Liver: No focal lesion identified. Increased echogenicity is noted of hepatic parenchyma suggesting fatty infiltration or diffuse hepatocellular disease. IMPRESSION: Probable fatty infiltration of the liver or other diffuse hepatocellular disease. No gallstones are noted, but severe gallbladder wall thickening is noted with mild amount of surrounding pericholecystic fluid, which is concerning for cholecystitis. Chest x-ray #3, viewed personally: CLINICAL DATA: Post intubation. EXAM: PORTABLE CHEST 1 VIEW COMPARISON: Chest radiograph earlier this day at 1857 hour FINDINGS: Endotracheal tube is 3.7 cm from the jeffrey. Tip of the left internal jugular central venous catheter is in the region the proximal SVC. No pneumothorax. Mild cardiomegaly is unchanged. Pleural effusions on CT, less well-defined radiographically. Retrocardiac opacity appears increased. Progressive pulmonary edema. IMPRESSION: 1. Endotracheal tube 3.7 cm from the jeffrey. 2. Increased pulmonary edema from prior. Increased retrocardiac opacity, likely secondary to increased edema. Cardiomegaly is stable. Pleural effusions, better assessed on CT. Per Dr. Singh: Bedside limited echocardiogram (with US): Diffuse hypokinesis, EF 40s. No pericardial effusion. - Assessment (1) Septic shock A41.9 - SEPSIS, UNSPECIFIED ORGANISM; R65.21 - SEVERE SEPSIS WITH SEPTIC SHOCK Acute Present on Admission: Yes Present on admission. Criteria: Resp rate 32. Pulse 90. WBCs 13.1. Source: likely due to acute cholecystis, but could also be due to acute pyelonephritis. Severe shock with cyanosis. On admission DP/PT pulses not palpable, radial pulses barely palpable. Plan: Admit to ICU. Sepsis order set. IV antibiotics empirically: IV Zosyn and IV Vancomycin. IV fluids to provide volume. Close monitoring. Telemetry. IVF: initial IVF 30 mL/kg x 1, then continue IVF boluses due to severe shock. UPDATE: Still hypotensive with continuing boluses and IV Levophed at 20. Cardiology consult recommended adding IV dobutamine gtt. Started IV dobutamine gtt. (2) Acute cholecystitis K81.0 - ACUTE CHOLECYSTITIS Acute Present on Admission: Yes Too unstable for surgery. May be the source of the sepsis and shock. Plan: Continue empiric antibiotics, IV Zosyn and Vancomycin. If stable enough in am consider percutaneous drain placement by interventional radiology. Appreciate consult by Dr. Moore, general surgeon. (3) Metabolic encephalopathy G93.41 - METABOLIC ENCEPHALOPATHY Acute Present on Admission: Yes Likely due to sepsis and shock. On presentation, the patient was non-verbal ( she is normally a relatively healthy person who is active and independent), and intermittently turning to her side and trying to sit up; she did not follow commands and did not speak, but she did grunt a few times. Dilated pupils bilaterally. Plan: Concerning. Neuro checks. Continue treatment for shock and sepsis. Further treatment depending on course. (4) Acute pyelonephritis N10 - ACUTE PYELONEPHRITIS Acute Present on Admission: Yes May be the source of the sepsis and shock. Urine, blood, and sputum cultures ordered prior to first antibiotic. Plan: Continue empiric antibiotics, IV Zosyn and Vancomycin. (5) Shock liver K72.00 - ACUTE AND SUBACUTE HEPATIC FAILURE WITHOUT COMA Acute Present on Admission: Yes Likely due to acute cholecystitis and hypotension associated with sepsis. Plan: Continue IV fluids and sepsis protocol. IV antibiotics. Monitor LFTs. (6) Heart failure, acute systolic I50.21 - ACUTE SYSTOLIC (CONGESTIVE) HEART FAILURE Suspected Present on Admission: Yes Very distant heart sounds on admission with severely decreased pulses even radial pulses. Suspect patient has component of heart failure. Elevated BNP noted. Bedside limited echocardiogram with ultrasound by branding machine tender revealed global hypokinesis and estimated EF of 40%. No history of heart failure but did have [place] and stent in 2009. Plan: Appreciate cardiology consult. Still hypotensive with continuing boluses and IV Levophed at 20. Cardiology consult recommended adding IV dobutamine gtt. Started IV dobutamine gtt. Echocardiogram in the AM. (7) Acute respiratory failure with hypoxia J96.01 - ACUTE RESPIRATORY FAILURE WITH HYPOXIA Acute Present on Admission: Yes Criteria: O2 sats decreased to 89% recorded, then to 77%, which was unfortunately not recorded, and her respiratory rate was 36. Her ABG does not reflect the level of her respiratory distress. Plan: Patient intubated in the emergency department. Vent: AC, TV 450, Resp rate 16, PEEP 5, FiO2 50%. UPDATE: Patient had decreasing O2 sats (which were not recorded under the vitals section) per respiratory therapist O2 sats in low 80s. Required increase of FiO2 to 100%. Did not tolerate TV 450: increased TV to 500. (is estimated to be approximately 8 cc/kg). New settings: AC, TV 500, Rate 16, PEEP 5, FiO2 100%. (8) Lactic acidosis E87.2 - ACIDOSIS Acute Present on Admission: Yes Severe. Likely due to sepsis and the hypotension. Plan: Sepsis protocol. IVF. (9) Nausea and vomiting R11.2 - NAUSEA WITH VOMITING, UNSPECIFIED Acute Present on Admission: Yes PRN medications. Increases risk that she may have aspirated. (10) Renal infarction N28.0 - ISCHEMIA AND INFARCTION OF KIDNEY Suspected Present on Admission: Yes CT suggestive of pyelonephritis versus possible renal infarction. Plan: Treat with IV antibiotics. Monitor kidney function. (11) Multisystem organ failure [id number] - Acute Present on Admission: Yes Patient presented to the emergency department obtunded, in severe distress, with severely poor perfusion, appeared to be actively dying. Critical care rendered throughout her emergency department course. Despite treatment, patient remains hypotensive. Her chances of survival are low. Family informed of the patient's critical illness and prognosis. Continue to treat agressively. - Plan In summary, this patient is acutely and critically ill. The patient requires treatment of vital organ failure and measures to prevent further life- threatening deterioration of condition. I have spent 150 min in the critical care of this patient. Met with family members multiple times to update on status. Case Care Discussed with: Patient, Consultants (Cylinder [employer]inder and General surgeon ), Family, Nursing Staff, Respiratory Therapy Critical Care: Yes Code: 291 - Focused CV Perfusion Exam Date exam occurred: 03/23/16 Time of Exam: 23:00 Vital Signs: Last Vital Signs See Vitals section Respiratory: Respiratory distress, Decreased breath sounds. negative: Accessory muscle use, Rhonchi, Wheezing Cardiovascular/Chest: Tachycardia (very distant heart sounds.) Capillary Refill: Greater than 3 seconds Peripheral pulses: Absent: Dorsalis pedis (R), Dorsalis pedis (L), Posterior tibialis (R), Posterior tibialis (L), Diminished: Radial (R), Radial (L) Skin Color: Dusky, Ashen, Cyanotic Skin Turgor: <3 Seconds
[2016-03-23] MEDS ORDERED: GLUCOSE (ORAL GEL) 15 GM TUBE PO PRN (23:17)
[2016-03-23] MEDS ORDERED: DEXTROSE 25 GM/50 ML PFS IV PRN (23:17)
[2016-03-23] MEDS ORDERED: GLUCAGON 1 MG VIAL SQ PRN (23:17)
[2016-03-23] MEDS ORDERED: SODIUM CHLORIDE 0.9% 5 ML FLUSH FLUSH PRN (23:17)
[2016-03-23] MEDS ORDERED: LORAZEPAM 2 MG/ML VIAL IV PRN (23:27)
[2016-03-23] MEDS ORDERED: CHAPSTICK LIP BALM TOP PRN (23:27)
[2016-03-23] MEDS ORDERED: ENOXAPARIN 40 MG/0.4 ML PFS SQ SCH (23:45)
[2016-03-23] MEDS ORDERED: Pharmacy Order Set Alert SCH (23:45)
[2016-03-23] MEDS ORDERED: FENTANYL 2,500 MCG/250 ML BAG IV SCH (23:45)
[2016-03-23] MEDS ORDERED: PIPERACILLIN AND TAZOBACTAM 4.5 GM in D5W 100 ML IV SCH (23:45)
[2016-03-24 00:10] LABS: ABG Draw Site Left Radial; ALLEN'S TEST PASS; BEb -17.5 (+/- 2); TCO2 12.2 MMOL/L (23-27)
[2016-03-24 00:11] LABS: MODE A/C 16 RATE
[2016-03-24] MEDS ORDERED: SODIUM BICARBONATE 150 MEQ in D5W 1,000 ML IV SCH ×2 (01:00→05:00)
[2016-03-24] MEDS ORDERED: DOBUTamine 500,000 MCG/250 ML RTU IV SCH (01:00)
--- NOTE | 2016-03-24 01:04 | DIRPT ---
CLINICAL DATA: Post intubation. EXAM: PORTABLE CHEST 1 VIEW COMPARISON: Chest radiograph earlier this day at 1857 hour FINDINGS: Endotracheal tube is 3.7 cm from the jeffrey. Tip of the left internal jugular central venous catheter is in the region the proximal SVC. No pneumothorax. Mild cardiomegaly is unchanged. Pleural effusions on CT, less well-defined radiographically. Retrocardiac opacity appears increased. Progressive pulmonary edema. IMPRESSION: 1. Endotracheal tube 3.7 cm from the jeffrey. 2. Increased pulmonary edema from prior. Increased retrocardiac opacity, likely secondary to increased edema. Cardiomegaly is stable. Pleural effusions, better assessed on CT. Electronically Signed By: Jesica Yu M.D. On: 03/24/2016 01:01
[2016-03-24] MEDS ORDERED: NS 1,000 ML IV ONE ×2 (01:19→05:42)
[2016-03-24] MEDS: REGULAR INSULIN 100 UNITS/ML - 3 ML VIAL SQ SCH ×3 (01:35→06:46)
[2016-03-24] MEDS: NS 1,000 ML IV ONE ×2 (02:01→02:04)
[2016-03-24] MEDS: Norepinephrine in D5W infusion 8,000 MCG/250 ML BAG IV SCH ×2 (02:02→02:03)
[2016-03-24] MEDS: SODIUM BICARBONATE 150 MEQ in D5W 1,000 ML IV SCH (02:08)
[2016-03-24] MEDS ORDERED: NS IV SCH (02:12)
[2016-03-24] MEDS ORDERED: VASOPRESSIN IV SCH (02:12)
[2016-03-24] MEDS ORDERED: HYDROCORTISONE 100 MG/2 ML VIAL IV SCH (02:15)
[2016-03-24] MEDS ORDERED: SODIUM BICARBONATE 50 MEQ/50 ML (8.4%) PFS IV ONE (02:28)
[2016-03-24] MEDS ORDERED: SODIUM BICARBONATE 100 ML IV SCH (03:00)
[2016-03-24] MEDS ORDERED: PANTOPRAZOLE 40 MG VIAL IV SCH (03:00)
[2016-03-24 04:49] LABS: CPKMB 7.3 ng/mL (0-4.5); CPKMB RELATIVE INDEX 1.8 (0.0-2.2)
[2016-03-24] MEDS ORDERED: Vaccine Screening Complete SCH (05:00)
[2016-03-24] MEDS ORDERED: PIPERACILLIN AND TAZOBACTAM 4.5 GM in D5W 100 ML IV SCH (06:00)
[2016-03-24] MEDS ORDERED: SODIUM CHLORIDE 0.9% 5 ML FLUSH FLUSH SCH (06:00)
[2016-03-24] MEDS ORDERED: CHLORHEXIDINE 0.12% ORAL SOLN 15 ML PO SCH (06:00)
[2016-03-24 06:06] LABS: ABG Draw Site Left Radial; ALLEN'S TEST PASS; BEb -9.3 (+/- 2); TCO2 17.3 MMOL/L (23-27)
[2016-03-24 06:07] LABS: MODE AC RATE; SPONT. RR 16 BR/MIN
[2016-03-24 07:42] VITALS: BP 102/56; PULSE 91
--- NOTE | 2016-03-24 07:58 | DIRPT ---
CLINICAL DATA: Pulmonary edema, pleural effusions, respiratory failure, intubated patient. EXAM: PORTABLE CHEST 1 VIEW COMPARISON: Portable chest x-ray of March 23, 2016 FINDINGS: The lungs are adequately inflated. The pulmonary vascularity is engorged and indistinct. Perihilar increased interstitial densities persist. There is stable increase retrocardiac density and trace left pleural effusion. The cardiac silhouette is mildly enlarged. The endotracheal tube tip lies 2.8 cm above the jeffrey. The esophagogastric tube tip projects below the inferior margin of the image. The right internal jugular venous catheter tip projects over the proximal SVC. IMPRESSION: Congestive heart failure with mildly improved pulmonary interstitial edema. There is a stable small left pleural effusion. Stable left lower lobe atelectasis. Electronically Signed By: Adonay Beauchamp M.D. On: 03/24/2016 07:55
[2016-03-24] MEDS ORDERED: Vancomycin HCl 0 MG in D5W 500 ML IV SCH (09:00)
[2016-03-24] MEDS ORDERED: DULOXETINE 30 MG CAP PO SCH (09:00)
--- NOTE | 2016-03-24 16:21 | PCM.DCS92 ---
- Final/Secondary Discharge Diagnosis (1) Septic shock Acute A41.9 - SEPSIS, UNSPECIFIED ORGANISM; R65.21 - SEVERE SEPSIS WITH SEPTIC SHOCK Present on Admission: Yes Comment: Present on admission. Criteria: Resp rate 32. Pulse 90. WBCs 13.1. Source: likely due to acute cholecystis, but could also be due to acute pyelonephritis. Severe shock with cyanosis. On admission DP/PT pulses not palpable, radial pulses barely palpable. Plan: Admit to ICU. Sepsis order set. IV antibiotics empirically: IV Zosyn and IV Vancomycin. IV fluids to provide volume. Close monitoring. Telemetry. IVF: initial IVF 30 mL/kg x 1, then continue IVF boluses due to severe shock. UPDATE: Still hypotensive with continuing boluses and IV Levophed at 20. Cardiology consult recommended adding IV dobutamine gtt. Started IV dobutamine gtt. (2) Acute cholecystitis Acute K81.0 - ACUTE CHOLECYSTITIS Present on Admission: Yes Comment: Too unstable for surgery. May be the source of the sepsis and shock. Plan: Continue empiric antibiotics, IV Zosyn and Vancomycin. If stable enough in am consider percutaneous drain placement by interventional radiology. Appreciate consult by Dr. Moore, general surgeon. (3) Metabolic encephalopathy Acute G93.41 - METABOLIC ENCEPHALOPATHY Present on Admission: Yes Comment: Likely due to sepsis and shock. On presentation, the patient was non- verbal (she is normally a relatively healthy person who is active and independent), and intermittently turning to her side and trying to sit up; she did not follow commands and did not speak, but she did grunt a few times. Dilated pupils bilaterally. Plan: Concerning. Neuro checks. Continue treatment for shock and sepsis. UPDATE: Continue Zosyn and Vancomycin. Appreciated telephone consult with critical care physician from [facility]. Per Critical care physician's recommendations, will add: (4) Acute respiratory failure with hypoxia Acute J96.01 - ACUTE RESPIRATORY FAILURE WITH HYPOXIA Present on Admission: Yes Comment: Criteria: O2 sats decreased to 89% recorded, then to 77%, which was unfortunately not recorded, and her respiratory rate was 36. Her ABG does not reflect the level of her respiratory distress. Plan: Patient intubated in the emergency department. Vent: AC, TV 450, Resp rate 16, PEEP 5, FiO2 50%. UPDATE: Patient had decreasing O2 sats (which were not recorded under the vitals section) per respiratory therapist O2 sats in low 80s. Required increase of FiO2 to 100%. Did not tolerate TV 450: increased TV to 500. (is estimated to be approximately 8 cc/kg). New settings: AC, TV 500, Rate 16, PEEP 5, FiO2 100%. (5) Acute pyelonephritis Acute N10 - ACUTE PYELONEPHRITIS Present on Admission: Yes Comment: May be the source of the sepsis and shock. Urine, blood, and sputum cultures ordered prior to first antibiotic. Plan: Continue empiric antibiotics, IV Zosyn and Vancomycin. (6) Shock liver Acute K72.00 - ACUTE AND SUBACUTE HEPATIC FAILURE WITHOUT COMA Present on Admission: Yes Comment: Likely due to acute cholecystitis and hypotension associated with sepsis. Plan: Continue IV fluids and sepsis protocol. IV antibiotics. Monitor LFTs. (7) Heart failure, acute systolic Suspected I50.21 - ACUTE SYSTOLIC (CONGESTIVE) HEART FAILURE Present on Admission: Yes Comment: Very distant heart sounds on admission with severely decreased pulses even radial pulses. Suspect patient has component of heart failure. Elevated BNP noted. Bedside limited echocardiogram with ultrasound by fixed income manager revealed global hypokinesis and estimated EF of 40%. No history of heart failure but did have MA and stent in 2010. Plan: Appreciate cardiology consult. Still hypotensive with continuing boluses and IV Levophed at 20. Cardiology consult recommended adding IV dobutamine gtt. Started IV dobutamine gtt. Echocardiogram in the AM. (8) Lactic acidosis Acute E87.2 - ACIDOSIS Present on Admission: Yes Comment: Severe. Likely due to sepsis and the hypotension. Plan: Sepsis protocol. IVF. Additional IV bicarb with bicarb gtt. (9) Nausea and vomiting Acute R11.2 - NAUSEA WITH VOMITING, UNSPECIFIED Present on Admission: Yes Comment: PRN medications. Increases risk that she may have aspirated. (10) Renal infarction Suspected N28.0 - ISCHEMIA AND INFARCTION OF KIDNEY Present on Admission: Yes Comment: CT suggestive of pyelonephritis versus possible renal infarction. Plan: Treat with IV antibiotics. Monitor kidney function. (11) Multisystem organ failure Acute [id number] - Present on Admission: Yes Comment: Patient presented to the emergency department obtunded, in severe distress, with severely poor perfusion, appeared to be actively dying. Critical care rendered throughout her emergency department course. Despite treatment, patient remains hypotensive. Her chances of survival are low. Family informed of the patient's critical illness and prognosis. Continue to treat agressively. Discharge Disposition: Trans. to Other Hospital Discharge Condition: Critical Cognitive Discharge Status: Unable to communicate needs, Altered Mental Status Fuctional Discharge Status: Total Assistance Required (due to being intubated on vent) O2 Device: Vent Diet at Discharge: Other (NPO) Activity: Limited Call Office For: Worsening Symptoms - DC Summary Notes HPI/Notes: HPI: PRIMARY CARE PROVIDER: Dr. Alexander Begum, [facility], [place], [place] DYE TANK TENDER: Dr. Rosa, [facility], [place], [place] HPI: The patient is a 61 yo woman with multiple sclerosis who presents with acute illness and severe distress. She is currently not speaking so her provides the history. She had an upper respiratory infection about 3 weeks ago and it resolved, then over the last week she has been getting sick again. She went to the doctor's office, was diagnosed with pneumonia, and started on Levaquin. She became short of breath. She started vomiting yesterday. Today she was so weak she could not get up. She then became obtunded today. Onset: Upper respiratory infection several weeks ago. New infection over the last week. Duration: progressively worsening Character: Severe fatigue, obtunded. Alleviated by: Nothing. Exacerbated by: Nothing. Associated Symptoms: She did complain of some abdominal pain at one point at home. Vomiting. Shortness of breath. Cough. Chills. No diaphoresis. No chest pain or palpitations. Treatments: none at home except usual medications. Was started on Levaquin . - Medical History Cardiac History: Reports: Coronary Artery Disease, Hypertension, Heart Attack ( Apr 2009, inferior wall STEMI, transferred to [facility]. Stent placed.), Cardiac Catheterization (Apr 2009 for inferior wall STEMI. Stent placed.) Respiratory History: Reports: Pneumonia (diagnosed with pneumonia at her primary care physician's office.) Musculoskeletal History: Reports: Arthritis (back) Systemic History: Reports: Cancer (cervical.) Neurological History: Reports: Multiple Sclerosis Psychological History: Reports: Depression - Surgical History Reports: Hysterectomy, Cardiac Catheterization (Apr 2009 for inferior wall STEMI. Stent placed.) - Medictions/Allergies Allergies No Known Allergies Allergy (Verified 08/06/14 12:14) Current Medication List: Reviewed Home Medications Aspirin (Enteric Coated) [Ecotrin] 81 mg PO DAILY 03/23/16 Duloxetine [Cymbalta] 90 mg PO DAILY 03/23/16 Ipratropium [Atrovent Hfa] 1 puff INH BID 03/23/16 Levofloxacin [Levaquin] 500 mg PO DAILY 03/23/16 Metoprolol Tartrate [Lopressor] 50 mg PO DAILY 03/23/16 Pregabalin [Lyrica] 50 mg PO TID 03/23/16 - Family History Reports: Hypertension, Stroke, Cardiac Disorders - Social History Travel Outside of [place] in the Last 3 Months?: No Lives: With Family Smoking Status: Former smoker Social History: Denies: Alcohol Use, Substance Use Disorder - Review of Systems Yes Review of systems cannot be obtained due to the patient's medical condition. Hospital Course Note:: Discharge summary on patient named KD KIMBLE admitted to [facility] on 03/23/16 by Jareth Falcon MD. Date of discharge is [03/24/16]. HOSPITAL COURSE: The patient is a 61 yo woman with multiple sclerosis, normally active and fairly healthy, who presented in severe distress to the emergency department on 03/23/16. HPI: The patient is a 61 yo woman with multiple sclerosis who presents with acute illness and severe distress. She is currently not speaking so her provides the history. She had an upper respiratory infection about 3 weeks ago and it resolved, then over the last week she has been getting sick again. She went to the doctor's office, was diagnosed with pneumonia, and started on Levaquin. She became short of breath. She started vomiting yesterday. Today she was so weak she could not get up. She then became obtunded today. Onset: Upper respiratory infection several weeks ago. New infection over the last week. Duration: progressively worsening Character: Severe fatigue, obtunded. Alleviated by: Nothing. Exacerbated by: Nothing. Associated Symptoms: She did complain of some abdominal pain at one point at home. Vomiting. Shortness of breath. Cough. Chills. No diaphoresis. No chest pain or palpitations. Treatments: none at home except usual medications. Was started on Levaquin . In the emergency department, the patient was in severe shock with cyanosis. On admission DP/PT pulses not palpable, radial pulses barely palpable. Patient received repeated boluses of IVF, was started on pressors, and intubated. The shock was thought primarily to be from sepsis, but a component of acute heart failure was also suspected to be contributing. Per emergency department, there were no ICU beds available at larger hospitals due to unusually high census numbers across the [facility]. The patient was admitted to the ICU in critical condition. Family was informed that the patient was critically ill and it was likely that she wouldn't survive. Sepsis is likely due to acute cholecystis, but could also be due to acute pyelonephritis. The patient was continued on IVF boluses, IV Levophed, and IV dobutamine was added per recommendation of the fixed income manager. She was started on broad spectrum antibiotics, including IV Zosyn and IV Vancomycin. The patient's oxygen saturations decreased and she was requiring 100% FiO2. Vent settings were adjusted. Discussed the case with critical care physician at [facility], who recommended adding Vasopressin IV, 2 amps of bicarb then continued IV bicarb gtt, hydrocortisone (stress dose was given in the ED) IV q 8 hours, and PPI daily; medications were added. There was concern about possible ARDS, so critical care physician recommended changed to PRVC with resp rate 30, TV 500, and PEEP 5 and to proceed with ARDS protocols; preparations were made to carry out changes but in the interim the patient's respiratory status had improved greatly on her current settings of AC TV 500 PEEP 5, and FiO2 being weaned from 90% to 80%. The critical care physician recommended changing the IVF to KVO because the patient had received 5L of IVF. We checked a CVP and it was 23. We attempted to decreased the IVF, but the patient's systolic blood pressure decreased to the 60s, so the IVF boluses were restarted and resulted in recovery of her blood pressure. Patient was on the waiting list to be transferred to [facility] ICU. Contacted [facility] in [place], [place], and the patient was accepted for transfer. The patient was transferred the morning after she was admitted. IV Medications included: IV Zosyn IV Vancomycin IV Levophed gtt IV dobutamine gtt IV vasopressin gtt IV bicarb gtt IV hydrocortisone q 8 hrs IV NS at 500 mL/hr Vent settings: AC rate 16 TV 500 PEEP 5. FiO2 90% and being weaned. Vitals: Pulse 90 BP 103/70 O2 sat 100% afebrile. Dr. Tinoco of [facility] graciously accepted the patient. No new interventions were recommended prior to transfer. Dr. Gorman asked that we inform the family that there was a significant chance that the patient would in transport before reaching his hospital. Informed the patient's family of Dr. Gorman's assessment, and family elected to proceed with the transfer. Appreciated greatly the assistance of the [facility] critical care physician and Dr. Tinoco of [facility]. Critical care time 03/24/16: 180 min. In summary, this patient is acutely and critically ill. The patient requires treatment of vital organ failure and measures to prevent further life- threatening deterioration of condition. I have spent 180 min in the critical care of this patient. Code: 291 - Transfer to Other Facility Patient Accepted to: [facility] in [place], [place] Accepting Physician: Dr. Tinoco Facility Dept.: Critical Care Transfer Form Completed: Yes Transfer Note: See Hospital Course - Physical Exam Vital Signs: Last Vital Signs Temp 97.4 F L 03/23/16 19:33 Pulse 91 03/24/16 07:00 Resp 16 03/24/16 06:30 BP 102/56 L 03/24/16 07:00 Pulse Ox 100 03/24/16 07:00 Oxygen Pulse Oxygen Saturation 100 O2 Device Vent Oxygen Flow Rate Fraction of Inspired Oxygen ( 90 FIO2) Vital Signs History 03/23/16 03/23/16 03/23/16 16:37 16:40 16:46 Temperature 97.9 F Pulse Rate 82 81 Respiratory 19 16 Rate Blood Pressure 80/51 L Pulse Oxygen 99 97 Saturation 03/23/16 03/23/16 03/23/16 16:50 16:54 17:14 Temperature Pulse Rate 85 80 Respiratory 16 20 Rate Blood Pressure 85/53 L 80/52 L 78/38 L Pulse Oxygen 97 Saturation 03/23/16 03/23/16 03/23/16 17:41 17:56 18:11 Temperature Pulse Rate 83 81 78 Respiratory 22 26 H 20 Rate Blood Pressure 92/40 L 69/40 L Pulse Oxygen 96 96 Saturation 03/23/16 03/23/16 03/23/16 18:36 19:04 19:15 Temperature Pulse Rate 78 84 78 Respiratory 32 H 30 H 24 Rate Blood Pressure 68/42 L Pulse Oxygen 99 Saturation 03/23/16 03/23/16 03/23/16 19:33 20:22 20:32 Temperature 97.4 F L Pulse Rate 82 83 84 Respiratory 24 10 12 Rate Blood Pressure 145/100 93/55 L 84/49 L Pulse Oxygen Saturation 03/23/16 03/23/16 03/23/16 20:41 20:52 21:00 Temperature Pulse Rate 86 86 86 Respiratory 15 18 15 Rate Blood Pressure 100/62 100/71 95/58 L Pulse Oxygen Saturation 03/23/16 03/23/16 03/23/16 21:05 21:10 21:15 Temperature Pulse Rate 86 86 86 Respiratory 17 18 18 Rate Blood Pressure 115/68 95/53 L 94/52 L Pulse Oxygen Saturation 03/23/16 03/23/16 03/23/16 21:20 21:25 21:35 Temperature Pulse Rate 86 86 86 Respiratory 20 20 Rate Blood Pressure 106/53 L 116/53 L Pulse Oxygen 94 93 Saturation 03/23/16 03/23/16 03/23/16 21:45 22:15 22:25 Temperature Pulse Rate 86 86 88 Respiratory 20 18 18 Rate Blood Pressure 115/56 L 103/53 L 99/57 L Pulse Oxygen 96 Saturation 03/23/16 03/23/16 03/24/16 23:27 23:30 00:00 Temperature Pulse Rate 90 94 Respiratory 16 16 16 Rate Blood Pressure 85/60 L 84/55 L Pulse Oxygen 100 95 89 L Saturation 03/24/16 03/24/16 03/24/16 01:15 02:00 02:30 Temperature Pulse Rate 88 96 Respiratory 16 16 Rate Blood Pressure 86/63 L 103/70 Pulse Oxygen 88 L 98 93 Saturation 03/24/16 03/24/16 03/24/16 03:00 03:17 03:30 Temperature Pulse Rate 93 92 91 Respiratory 16 16 16 Rate Blood Pressure 89/68 L 92/66 L 87/64 L Pulse Oxygen 100 100 100 Saturation 03/24/16 03/24/16 03/24/16 04:00 05:00 05:30 Temperature Pulse Rate 92 92 96 Respiratory 16 16 16 Rate Blood Pressure 94/69 L 104/58 L 108/56 L Pulse Oxygen 100 100 100 Saturation 03/24/16 03/24/16 03/24/16 06:00 06:30 07:00 Temperature Pulse Rate 96 92 91 Respiratory 16 16 Rate Blood Pressure 96/75 L 105/49 L 102/56 L Pulse Oxygen 100 99 100 Saturation - Other Exam Other Exam Findings: PHYSICAL EXAM GENERAL: Severely ill-appearing, well nourished, in acute distress. HEENT: Normocephalic, atraumatic; pupils equal and round. Nares patent, without discharge or bleeding. No oropharyngeal lesions or erythema. Mucous membranes are dry. NECK: is supple, no masses, trachea midline. RESPIRATORY: Clear to auscultation bilaterally. Chest wall movements are symmetric. No use of accessory muscles to breathe. Now intubated. Breath sounds have improved since initial exam. No wheezing, rales, rhonchi. CARDIOVASCULAR: Normal S1, S2. Heart sounds that were severely distant on initial exam are now easily audible. No murmurs, rubs, or gallops. PMI non-displaced. Carotids: no carotid bruits. Mild tachycardia. DP, PT pulses now barely palpable bilaterally, which is improved from initial exam. Radial pulses palpable at 1+, which is improved from initial exam. GI: soft, non-distended, normal active bowel sounds. No hepatosplenomegaly. On initial exam had tenderness in the right upper quadrant; patient now intubated and sedated so cannot determine tenderness. INTEGUMENT: Clean, dry, and intact. Patient on initial exam had cyanotic/brandon hue; currently still somewhat brandon but also jaundiced. Color improved from initial exam. MUSCULOSKELETAL: Cyanosis resolved. No clubbing. Edema: none bilaterally. NEUROLOGICAL: Cranial nerves 2-12 grossly intact, as best can be determined in this intubated and sedated patient. Reflexes: 2+ bilaterally. Babinski: toes downgoing bilaterally. Further neurologic exam could not be performed due to the medical condition of the patient. PSYCHIATRIC: Not oriented. Intubated and sedated. LYMPHATIC: No cervical lymphadenopathy. No supraclavicular lymphadenopathy. LABS: MICROBIOLOGY: DIAGNOSTIC DATA: EK bpm. Normal sinus rhythm. Possible left atrial enlargement. Left axis deviation. Possible anterior infarct, age undetermined. Flat T wave in 2, 3, aVF , V6. Reviewed EKG personally. IMAGING: Chest x-ray #1, viewed personally: EXAM: PORTABLE CHEST 1 VIEW COMPARISON: 02/13/2012 FINDINGS: Borderline cardiomegaly. Mild hilar prominence bilaterally. Adenopathy cannot be excluded. No pulmonary edema. Hazy right base medially atelectasis or infiltrate. No pulmonary edema. IMPRESSION: Mild hilar prominence bilaterally. Adenopathy cannot be excluded. Hazy right base medially atelectasis or early infiltrate. No pulmonary edema. Chest x-ray #2, viewed personally: CLINICAL DATA: Left IJ central line placement EXAM: PORTABLE CHEST 1 VIEW COMPARISON: Chest radiograph from earlier today. FINDINGS: Left internal jugular central venous catheter terminates in the right upper mediastinum, probably within the left brachiocephalic vein near the junction with the SVC. Stable cardiomediastinal silhouette with mild cardiomegaly. Suggestion of mild bilateral hilar prominence, unchanged. No pneumothorax. Probable stable bilateral small pleural effusions. Low lung volumes. No overt pulmonary edema. Mild bibasilar lung opacities, increased on the left. IMPRESSION: 1. No pneumothorax. Left IJ central venous catheter terminates in the right upper mediastinum, probably within the left brachiocephalic vein near the junction with the SVC. 2. Stable mild cardiomegaly without overt pulmonary edema. 3. Low lung volumes with mild bibasilar opacities, increased on the left, favor atelectasis. 4. Stable suggestion of mild bilateral hilar prominence, cannot exclude hilar adenopathy. 5. Stable probable small bilateral pleural effusions. EXAM: CT ANGIOGRAPHY CHEST CT ABDOMEN AND PELVIS WITH CONTRAST TECHNIQUE: Multidetector CT imaging of the chest was performed using the standard protocol during bolus administration of intravenous contrast. Multiplanar CT image reconstructions and MIPs were obtained to evaluate the vascular anatomy. Multidetector CT imaging of the abdomen and pelvis was performed using the standard protocol during bolus administration of intravenous contrast. CONTRAST: 90 cc Isovue 370. COMPARISON: None. FINDINGS: CTA CHEST FINDINGS No pulmonary embolus is identified. There is cardiomegaly. Moderate right and small left pleural effusions are seen. No pericardial effusion. Calcific coronary atherosclerosis is noted. There is abnormal soft tissue attenuation in the supraclavicular space bilaterally which appears fairly symmetric. The lungs demonstrate extensive ground-glass attenuation and interlobular septal thickening best seen in the upper lobes bilaterally. There is some compressive atelectasis. No focal bony abnormality is identified. CT ABDOMEN and PELVIS FINDINGS Multiple areas of low attenuation are seen in the kidneys bilaterally. No hydronephrosis is seen. A punctate nonobstructing stone is present in the upper pole of the right kidney. Two punctate nonobstructing stones are seen in the left kidney. The liver is diffusely low attenuating. Contrast refluxes into the inferior vena cava and hepatic veins consistent with right heart failure. The gallbladder is distended with a sludge ball present. The spleen, pancreas and adrenal glands appear normal. There is a small volume of abdominal and pelvic ascites. Moyer catheter is in place in a decompressed urinary bladder. No lymphadenopathy is seen. The patient is status post hysterectomy. Sigmoid diverticulosis without diverticulitis is identified. The stomach, small and large bowel and appendix appear normal. No focal bony abnormality is seen. Review of the MIP images confirms the above findings. IMPRESSION: Negative for pulmonary embolus. Findings consistent with congestive heart failure with marked cardiomegaly, pleural effusions and changes of pulmonary edema identified. Reflux of contrast into the IVC and hepatic veins is consistent with right heart insufficiency. Markedly abnormal appearance of the kidneys as described above could be due to infiltrative process such as lymphoma, severe pyelonephritis or possibly bilateral renal infarcts. Diffuse fatty infiltration of the liver. Distended gallbladder with a large sludge ball present. If there is concern for cholecystitis, right upper quadrant ultrasound could be used for further evaluation. Calcific coronary atherosclerosis. Small volume of abdominal and pelvic ascites. Nodular appearance and infiltration of supraclavicular fat bilaterally is nonspecific. This may be due to edema or less likely lymphadenopathy. Recommend correlation with clinical examination. Diverticulosis without diverticulitis. These results were called by telephone at the time of interpretation on 03/23/2016 at 8:[address] HÉCTOR HOFF DO, who verbally acknowledged these results EXAM: CT HEAD WITHOUT CONTRAST TECHNIQUE: Contiguous axial images were obtained from the base of the skull through the vertex without intravenous contrast. COMPARISON: CT scan of February 13, 2012. FINDINGS: Bony calvarium appears intact. No mass effect or midline shift is noted. Ventricular size is within normal limits. There is no evidence of mass lesion, hemorrhage or acute infarction. There is noted gas in the soft tissues anterior to the right maxillary sinus of unknown etiology. IMPRESSION: No acute intracranial abnormality seen. Gas is seen in soft tissues anterior to right maxillary sinus suggesting possible traumatic injury or infection. Clinical correlation is recommended. These results were called by telephone at the time of interpretation on 03/23/2016 at 8:[address] HÉCTOR HOFF DO, who verbally acknowledged these results. EXAM: US ABDOMEN LIMITED - RIGHT UPPER QUADRANT COMPARISON: CT scan of same day. FINDINGS: Gallbladder: Severe wall thickening is noted without gallstones. Sonographic Carrizales's sign could not be assessed due to patient being unresponsive. Mild pericholecystic fluid is noted. Common bile duct: Diameter: 1.1 mm which is within normal limits. Liver: No focal lesion identified. Increased echogenicity is noted of hepatic parenchyma suggesting fatty infiltration or diffuse hepatocellular disease. IMPRESSION: Probable fatty infiltration of the liver or other diffuse hepatocellular disease. No gallstones are noted, but severe gallbladder wall thickening is noted with mild amount of surrounding pericholecystic fluid, which is concerning for cholecystitis. Chest x-ray #3, viewed personally: CLINICAL DATA: Post intubation. EXAM: PORTABLE CHEST 1 VIEW COMPARISON: Chest radiograph earlier this day at 1857 hour FINDINGS: Endotracheal tube is 3.7 cm from the jeffrey. Tip of the left internal jugular central venous catheter is in the region the proximal SVC. No pneumothorax. Mild cardiomegaly is unchanged. Pleural effusions on CT, less well-defined radiographically. Retrocardiac opacity appears increased. Progressive pulmonary edema. IMPRESSION: 1. Endotracheal tube 3.7 cm from the jeffrey. 2. Increased pulmonary edema from prior. Increased retrocardiac opacity, likely secondary to increased edema. Cardiomegaly is stable. Pleural effusions, better assessed on CT. Per Dr. Singh, fixed income manager: Bedside limited echocardiogram (with US): Diffuse hypokinesis, EF 40s. No pericardial effusion.
[2016-03-24] MEDS ORDERED: CHLORHEXIDINE (HIBICLENS) 4 OZ BOTTLE TOP SCH ×2 (21:00)
== END 2016-03-24 07:00 | disposition hospice, home (50) | DRG 871 ==
LOC: ED 16:22 → ICU 23:13
PROVIDERS: ADMIT Internal Medicine; ATTEND Internal Medicine
PROC: 0BH17EZ Insertion of Endotracheal Airway into Trachea, Via Natural or Artificial Opening (ICD-10-PCS; principal; 2016-03-23)
PROC: 5A1935Z Respiratory Ventilation, Less than 24 Consecutive Hours (ICD-10-PCS; 2016-03-23)
PROC: 05HN33Z Insertion of Infusion Device into Left Internal Jugular Vein, Percutaneous Approach (ICD-10-PCS; 2016-03-23)
PROC: B514ZZA Fluoroscopy of Left Jugular Veins, Guidance (ICD-10-PCS; 2016-03-23)
PROC: 039C3ZZ Drainage of Left Radial Artery, Percutaneous Approach (ICD-10-PCS; 2016-03-23)
DX: A41.9 Sepsis, unspecified organism (principal); R65.21 Severe sepsis with septic shock; K72.00 Acute and subacute hepatic failure without coma; J96.01 Acute respiratory failure with hypoxia; G93.41 Metabolic encephalopathy; K81.0 Acute cholecystitis; G35 Multiple sclerosis; N28.0 Ischemia and infarction of kidney; N10 Acute pyelonephritis; E87.2 Acidosis; I25.2 Old myocardial infarction; I25.10 Atherosclerotic heart disease of native coronary artery without angina pectoris; Z95.5 Presence of coronary angioplasty implant and graft; Z79.82 Long term (current) use of aspirin; Z79.899 Other long term (current) drug therapy; Z87.891 Personal history of nicotine dependence; Z85.41 Personal history of malignant neoplasm of cervix uteri
CPT/HCPCS: 31500; 36556; 36600; 70450; 71010; 71275; 74174; 76705; 80053; 80307; 80329; 81001; 82533; 82550; 82553; 82803; 82962; 83605; 83690; 83880; 84145; 84484; 85025; 85610; 85730; 86850; 86900; 86901; 87040; 87070; 87086; 87205; 87641; 93005; 94640; 96361; 96365; 96366; 96372; 96375; 96376; 99285; 99291; A9698; J1250; J1650; J1720; J2060; J2543; J3010; J3370; J3490; J7030; J7060; J7620; S0164